=== PATIENT | male | born 1975 | race Caucasian/White ===

== ENCOUNTER 2020-07-12 13:46 | Emergency (ER) | payer MEDICAID ==
[~2020-07-12] VITALS: Ht 177.8 cm; Wt 90.0 kg
[2020-07-12 14:08] VITALS: BP 175/101
[2020-07-12] MEDS ORDERED: ketorolac tromethamine 15mg/ml inj. IM ONE (14:50)
[2020-07-12] MEDS ORDERED: HYDROcodone/acetaminophen 10/325mg tab PO ONE (14:50)
[2020-07-12] MEDS ORDERED: DOXY100C43 PO (17:02)
[2020-07-12] MEDS ORDERED: CefTRIAXone 250MG IM Kit w/LIDOcaine IM ONE (17:05)
== END 2020-07-12 18:32 | disposition home or self-care (01) ==
LOC: ER 13:46
DX: N45.1 Epididymitis (principal); N50.812 Left testicular pain; N50.811 Right testicular pain; R42 Dizziness and giddiness; R10.30 Lower abdominal pain, unspecified; Z79.2 Long term (current) use of antibiotics
CPT/HCPCS: 76870; 93976; 96372; 99284; J0696; J1885

== ENCOUNTER 2021-10-28 14:53 | Emergency (ER) | payer MEDICAID ==
[~2021-10-28] VITALS: Ht 177.8 cm; Wt 76.0 kg
[2021-10-28 15:14] VITALS: BP 168/110
[2021-10-28] MEDS ORDERED: ondansetron 4mg rapidly disintigrating tab PO ONE (15:55)
[2021-10-28] MEDS ORDERED: HYDROcodone/acetaminophen 5mg/325mg tablet PO ONE (15:55)
[2021-10-28] MEDS ORDERED: ketorolac tromethamine 15mg/ml inj. IM ONE (15:55)
--- NOTE | 2021-10-28 16:12 | NUR ---
po med x2 given im given
[2021-10-28] MEDS ORDERED: IBUP-1984 PO (16:22)
== END 2021-10-28 16:49 | disposition home or self-care (01) ==
LOC: ER 14:53
DX: M25.562 Pain in left knee (principal); W19.XXXA Unspecified fall, initial encounter; Y93.89 Activity, other specified; Y92.89 Other specified places as the place of occurrence of the external cause; Y99.8 Other external cause status
CPT/HCPCS: 29505; 73564; 96372; 99283; J1885

== ENCOUNTER 2023-10-13 10:12 | Day surgery (SDC) | payer MEDICAID ==
[2023-10-05 14:17] LABS: EOSINOPHILS # (AUTO) 0.4 X10'3 (0-0.9); MEAN PLATELET VOLUME 7.2 FL (7.4-10.4); MONOCYTES # (AUTO) 0.5 X10'3 (0-0.9); PRE OP HEMOGLOBIN 14.5 g/dL (14.0-17.9)
[2023-10-05 14:19] LABS: BASOPHILS % (AUTO) 0.8 % (0-1); EOSINOPHILS % (AUTO) 6.8 % (0-6); LYMPHOCYTES # (AUTO) 2.2 X10'3 (1.1-4.8); LYMPHOCYTES % (AUTO) 41.3 % (21-51); MEAN CORPUSCULAR HEMOGLOBIN 32.4 PG (27.0-31.0); MEAN CORPUSCULAR HGB CONC 34.2 g/dL (33.0-36.5); MEAN CORPUSCULAR VOLUME 94.7 FL (78-98); MONOCYTES % (AUTO) 9.1 % (2-12); NEUTROPHILS # (AUTO) 2.2 X10'3 (1.8-7.7); PRE OP HEMATOCRIT 42.5 % (42.0-52.0); PRE OP PLATELET COUNT 359 X10'3 (140-440); PRE OP WHITE BLOOD COUNT 5.2 10'3 (4.8-10.8); RED BLOOD COUNT 4.49 X10'6 (4.70-6.10); RED CELL DISTRIBUTION WIDTH 12.5 % (11.5-14.5)
[2023-10-05 14:31] LABS: ALBUMIN 3.9 G/DL (3.4-5.0); ALKALINE PHOSPHATASE 71 IU/L (46-116); BLOOD UREA NITROGEN 17 MG/DL (7-18); BUN/CREATININE RATIO 12.3 (10.0-20.0); CALCIUM 9.2 MG/DL (8.5-10.1); CHLORIDE 101 MMOL/L (99-107); CREATININE 1.38 MG/DL (0.60-1.10); PRE OP ALT 49 U/L (30-65); PRE OP ANION GAP 7 (8-16); PRE OP AST 25 U/L (10-37); PRE OP BILIRUB, TOTAL 0.4 MG/DL (0.0-1.0); PRE OP GLUCOSE 107 MG/DL (70-104); PRE OP POTASSIUM 4.5 MMOL/L (3.4-5.1); PRE OP SODIUM 138 MMOL/L (135-145); TOTAL CARBON DIOXIDE 30.5 MMOL/L (24-32); TOTAL PROTEIN 7.8 G/DL (6.4-8.2); eGFR 55 ML/MIN
[2023-10-13] VITALS (9 sets, daily range): BP systolic 128–151; BP diastolic 71–137; PULSE 70–83; RESP 14–16; TEMP 98.1; O2SAT 99–100
[~2023-10-13] VITALS: Ht 172.7 cm; Wt 81.3 kg
[2023-10-13] MEDS: cefazolin 2gm/D5W 100mL 100 ML IV ONE (05:30)
[2023-10-13] MEDS: DOCUMENT DATE & TIME OF BETA-BLOCKER PO ONE (05:30)
[~2023-10-13 10:12] MED LIST: ATOM40CA PO; BUPR-561 PO; LAMO25TA4 PO; LAMO25TA5 PO; LISI10TA27 PO; NALT50TA5 PO; OMEP20CA16 PO; ONDA-103 PO; PROP10TA10 PO
[2023-10-13] MEDS: famotidine 20mg tablet PO ONE (10:57)
[2023-10-13] MEDS: ringers solution, lacted 1,000 ML IV SCH ×2 (10:58→14:51)
[2023-10-13] MEDS ORDERED: proCHLORperazine 10 MG/2 ml inj IV PRN (12:05)
[2023-10-13] MEDS ORDERED: ondansetron/PF 4mg/2ml inj IV PRN (12:05)
[2023-10-13] MEDS ORDERED: morphine 4 MG/ML inj SYRINge IV PRN (12:05)
[2023-10-13] MEDS ORDERED: meperidine/PF 25mg/ml syringe IV PRN ×3 (12:05)
[2023-10-13] MEDS ORDERED: sevoflurane 250ml liquid IH ONE (13:16)
[2023-10-13] MEDS ORDERED: fentaNYL/PF 50MCG/1 ML 2ML syringe ONE (13:21)
[2023-10-13] MEDS ORDERED: midazolam 1 mg/ML 2ml injection ONE (13:21)
[2023-10-13] MEDS ORDERED: propofol inj 20 ML IV ONE (13:23)
[2023-10-13] MEDS ORDERED: rocuronium 10mg/ml inj IV ONE (13:33)
[2023-10-13] MEDS ORDERED: dexamethasone sod phosphate 4mg/ml inj. ONE (13:34)
[2023-10-13] MEDS: LIDOcaine 1% 30ml preserv. free vial ONE (13:39)
[2023-10-13] MEDS: BUPIVAcaine 2.5mg/ml inj 50ml vial (contains preservative) ONE (13:39)
[2023-10-13] MEDS ORDERED: ondansetron/PF 4mg/2ml inj ONE (14:14)
[2023-10-13] MEDS ORDERED: neostigmine methylsulfate 1 MG/ML 10ml vial ONE (14:14)
[2023-10-13] MEDS ORDERED: glycopyrrolate 0.2mg/ml inj ONE (14:15)
[2023-10-13] MEDS: morphine 2 MG/ML inj. syringe IV PRN (14:51)
[2023-10-13] MEDS: HYDROcodone/acetaminophen 5mg/325mg tablet PO PRN (16:13)
== END 2023-10-13 16:12 | disposition home or self-care (01) ==
LOC: PAS 10:12
PROVIDERS: ATTEND Surgery
DX: K40.90 Unilateral inguinal hernia, without obstruction or gangrene, not specified as recurrent (principal); K42.9 Umbilical hernia without obstruction or gangrene; I10 Essential (primary) hypertension; K21.9 Gastro-esophageal reflux disease without esophagitis; F90.9 Attention-deficit hyperactivity disorder, unspecified type; F41.9 Anxiety disorder, unspecified; F32.A Depression, unspecified; I20.9 Angina pectoris, unspecified; Z87.891 Personal history of nicotine dependence; Z87.442 Personal history of urinary calculi; Z79.899 Other long term (current) drug therapy; Z82.61 Family history of arthritis; Z82.5 Family history of asthma and other chronic lower respiratory diseases
CPT/HCPCS: 36415; 49591; 49650; 80053; 82948; 85025; 93005; C1781; J0690; J1100; J2250; J2270; J2405; J2704; J2710; J3010; J3490; J7030; J7120; S2900; Z7506; Z7508; Z7512; A4215; A4618

== ENCOUNTER 2024-01-28 08:19 | Outpatient (CLI) | payer MEDICAID | END 2024-01-28 23:59 | disposition home or self-care (01) | LOC: US 08:19 | PROVIDERS: ATTEND Student in an Organized Health Care Education/Training Program | DX: R10.84 Generalized abdominal pain (principal) | CPT/HCPCS: 76700 ==